=== PATIENT | female | born 1960 | race Caucasian/White ===

== ENCOUNTER 2019-06-15 13:30 | Emergency (ER) | payer BC ==
[~2019-06-15] VITALS: Ht 167.6 cm; Wt 98.9 kg
[2019-06-15 13:30] VITALS: BP_SYST 149
--- NOTE | 2019-06-15 13:35 | NUR ---
Patient triaged and placed in waiting room. VSS and patient appears in no acute distress at this time. Accompanied by SELF, awaiting available bed, and MD notified of need for MSE.
--- NOTE | 2019-06-15 15:41 | NUR ---
PT BROUGHT BACK TO BED #4 AND TRIAGED. REPORT GIVEN TO DALIA
--- NOTE | 2019-06-15 16:10 | NUR ---
Patient is awake, alert, and oriented x4. Patient reports redness to bilateral wrists and back since this morning. She denies pain and itchiness. She reports that she has been on oral medication for breast cancer since January.
--- NOTE | 2019-06-15 16:15 | NUR ---
MEL Steen at bedside examining patient.
[2019-06-15] MEDS ORDERED: DIPHENHYDRAMINE HCL 25 MG CAPSULE PO ONE (16:30)
[2019-06-15] MEDS ORDERED: PREDNISONE 20 MG TABLET PO ONE (16:30)
[2019-06-15 16:38] VITALS: BP_SYST 134
--- NOTE | 2019-06-15 16:38 | NUR ---
Patient given written and verbal discharge instructions and verbalizes understanding. ER MD discussed with patient the results and treatment provided. Patient in stable condition. ID arm band removed. Rx of benadryl, prednisone given. Patient educated on pain management and to follow up with PMD. Pain Scale 0/10. Opportunity for questions provided and answered. Medication side effect fact sheet provided.
== END 2019-06-15 16:38 | disposition home or self-care (01) ==
LOC: SED 13:30
DX: T78.40XA Allergy, unspecified, initial encounter (principal); R21 Rash and other nonspecific skin eruption; X58.XXXA Exposure to other specified factors, initial encounter
CPT/HCPCS: 99283; J7512; Q0163